=== PATIENT | female | born 1945 | race Caucasian/White ===

== ENCOUNTER → 2017-02-05 | Day surgery (SDC) | payer MEDICARE ==
[~2017-02-05] VITALS: Ht 157.5 cm; Wt 76.2 kg
[~2017-02-05] MED LIST: ATIVAN0.5 MG PO; CIPRO500 MG PO; COLACE100 MG PO; EFFEXOR75 MG PO; GLUCOPHAGE500 MG PO; NORVASC5 MG PO; PERCOCET 10/3251 TAB PO; PHENERGAN25 M1 PO; PRINIVIL20 MG PO; TOFRANIL50 MG PO
== END | disposition home or self-care (01) ==
LOC: SDC 10:19
DX: N30.20 Other chronic cystitis without hematuria (principal); N32.81 Overactive bladder; N39.41 Urge incontinence; N95.2 Postmenopausal atrophic vaginitis; I10 Essential (primary) hypertension; E11.9 Type 2 diabetes mellitus without complications; M19.90 Unspecified osteoarthritis, unspecified site; Z79.899 Other long term (current) drug therapy; Z88.8 Allergy status to other drugs, medicaments and biological substances; Z88.1 Allergy status to other antibiotic agents; Z90.710 Acquired absence of both cervix and uterus; Z90.49 Acquired absence of other specified parts of digestive tract
CPT/HCPCS: C1758; J0585; J2704; L8606; Q9967